=== PATIENT | female | born 1995 | race Caucasian/White ===

== ENCOUNTER 2016-06-24 18:41 | Emergency (ER) | payer MEDICAID ==
[~2016-06-24] VITALS: Ht 160 cm; Wt 59.0 kg
[2016-06-24 21:27] VITALS: BP 139/79
== END 2016-06-24 22:32 | disposition home or self-care (01) ==
LOC: ER 18:44
DX: S62.306A Unspecified fracture of fifth metacarpal bone, right hand, initial encounter for closed fracture (principal); W20.8XXA Other cause of strike by thrown, projected or falling object, initial encounter; Y93.89 Activity, other specified; Y92.89 Other specified places as the place of occurrence of the external cause; Y99.8 Other external cause status
CPT/HCPCS: 29125; 73130; 81025

== ENCOUNTER 2016-09-19 12:24 | Emergency (ER) | payer MEDICAID ==
[~2016-09-19] VITALS: Ht 160 cm; Wt 63.0 kg
[2016-09-19 12:27] VITALS: BP 120/67
== END 2016-09-19 15:49 | disposition left against medical advice (07) ==
LOC: ER 12:24
DX: R07.89 Other chest pain (principal); Z53.21 Procedure and treatment not carried out due to patient leaving prior to being seen by health care provider
CPT/HCPCS: 93005